=== PATIENT | female | born 1990 | race Caucasian/White ===

== ENCOUNTER → 2020-06-21 10:20 | Outpatient (CLI) | payer OTHER, SELFPAY ==
--- NOTE | ~2020-06-21 | XR_ITS ---
Corrected Report Changed to 3 view 06/22/2020 [facility] XR thoracic spine 3V DATE: 06/21/2020 10:52 INDICATION: Back pain TECHNIQUE: AP, lateral, swimmer views COMPARISON: None FINDINGS: Mild dextroscoliosis of the thoracic spine. No fracture or bone destruction. The thoracic pedicles are intact. No paraspinal soft tissue thickening. IMPRESSION: Mild dextroscoliosis Reviewed, dictated and finalized at location B. MTDD IMPRESSION: Mild dextroscoliosis
--- NOTE | ~2020-06-21 | XR_ITS ---
[id number] DATE: 06/21/2020 10:52 INDICATION: Left chest pain, abdominal pain TECHNIQUE: PA chest. 4 views of the left ribs. COMPARISON: None FINDINGS: Normal heart size. No hilar or mediastinal enlargement. The lungs appear mildly hyperinflat ed but are clear of infiltrate or consolidation. No pleural effusion or pulmonary vascular congestion or pneumothorax. No left rib fracture or bone destruction is detected. IMPRESSION: Negative Reviewed, dictated and finalized at Location A. Reviewed, dictated and finalized at location B. IMPRESSION: Negative
--- NOTE | ~2020-06-21 | XR_ITS ---
XR abdomen/kub 1V DATE: 06/21/2020 10:52 INDICATION: Abdominal pain, left flank pain. No known injury. TECHNIQUE: AP projection, 2 views COMPARISON: None FINDINGS: There are a couple of calcifications overlying the left renal silhouette, of uncertain sign ificance. Bilateral calcified pelvic phleboliths. The psoas shadows are intact. No visceromegaly is evident. There is no evidence of bowel obstruction. Included skeletal structures are unremarkable. The lung bases are clear. IMPRESSION: Nonspecific abdomen Reviewed, dictated and finalized at Location A. Reviewed, dictated and finalized at location B. IMPRESSION: Nonspecific abdomen
== END ==
PROVIDERS: PCP Physician Assistant; Visit Provider Physician Assistant
DX: R10.9 Unspecified abdominal pain (principal); M41.84 Other forms of scoliosis, thoracic region
CPT/HCPCS: 71101; 72072; 74018

== ENCOUNTER → 2020-06-29 08:53 | Outpatient (CLI) | payer OTHER, SELFPAY ==
--- NOTE | ~2020-06-29 | CT_ITS ---
EXAMINATION: CT abdomen pelvis wo con EXAM DATE: 06/29/2020 09:18 INDICATION: Appendectomy. Left flank pain. Frequent urination. TECHNIQUE: Spiral CT of the abdomen and pelvis was performed without contrast. Axial, coronal and sag ittal images were reviewed. The dose-length product (DLP) for this examination was 421.42 mGy-cm. T he exposure was tailored according to patient size (auto mA exposure control), and iterative reconstr uction (ASIR) was used as additional dose reduction technique. There is no prior study for compariso n. FINDINGS: Calcifications in the pelvis are believed to be phleboliths. There is no nephrolithiasis o r hydronephrosis. The uterus is retroverted and morphologically normal. The bladder is unremarkab le. The liver, spleen, adrenal glands and pancreas are unremarkable. Gallbladder is unremarkable. No biliary obstruction. There is no retroperitoneal or pelvic lymphadenopathy. Some suture material along the cecal base. The stomach and small bowel are unremarkable. There is e xpected amount of colonic stool. No free intraperitoneal gas. The heart is normal in size. There are no pericardial or pleural effusions. The lung bases are unremarkable. The bones are unremarkab le. IMPRESSION: Unremarkable CT abdomen pelvis exam. Reviewed, dictated and finalized at location A.
== END ==
PROVIDERS: PCP Physician Assistant; Visit Provider Physician Assistant
DX: R93.41 Abnormal radiologic findings on diagnostic imaging of renal pelvis, ureter, or bladder (principal)
CPT/HCPCS: 74176

== ENCOUNTER → 2020-08-28 15:23 | Outpatient (CLI) | payer OTHER, SELFPAY ==
--- NOTE | ~2020-08-28 | MR_ITS ---
EXAMINATION: MR brain/brain stem wo/w con EXAM DATE: 08/28/2020 16:18 INDICATION: Bilateral hand and feet paresthesia. TECHNIQUE: Magnetic resonance imaging (MRI) of the brain/brain stem obtained without contrast. Sagit opal T1, axial diffusion, gradient echo (T2*), T1, T2, FLAIR sequences obtained. Patient was then inj ected with 12 cc intravenous Multihance contrast. Axial and coronal postcontrast T1 weighted sequence s obtained. There is no prior study for comparison. FINDINGS: There are no areas of restricted diffusion to suggest acute infarction. There is no acute hemorrhage seen on the T2*, a hemosiderin sensitive sequence. No intraparenchymal brain mass. The ve ntricles are normal in size. There are no extra-axial collections. Flow voids are seen in the cereb ral arteries on the T2-weighted sequences consistent with their expected patency. The orbits are unr emarkable. Soft tissue is unremarkable. There are no areas of abnormal enhancement on the postcont rast images. IMPRESSION: 1. Normal brain MRI examination. Reviewed, dictated and finalized at location A.
[2020-08-28 16:05] LABS: Estimated Glomerular Filt Rate > 60
== END ==
PROVIDERS: PCP Physician Assistant; Visit Provider Physician Assistant
DX: R20.2 Paresthesia of skin (principal)
CPT/HCPCS: 70553; A9577

== ENCOUNTER → 2022-11-27 10:08 | Outpatient (CLI) | payer OTHER, SELFPAY ==
--- NOTE | ~2022-11-27 | XR_ITS ---
EXAMINATION: XR hand RT min 3V INDICATION: Right hand pain TECHNIQUE: Three views of the right hand are obtained. COMPARISON: None available FINDINGS: No fracture, dislocation, or subluxation. The bones, soft tissues, and joint spaces are nor mal. IMPRESSION: 1. No acute osseous abnormality. 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
--- NOTE | ~2022-11-27 | XR_ITS ---
EXAMINATION: XR hand LT min 3V INDICATION: Left hand pain TECHNIQUE: Three views of the left hand are obtained. COMPARISON: None available FINDINGS: No fracture, dislocation, or subluxation. The bones, soft tissues, and joint spaces are nor mal. IMPRESSION: 1. No acute osseous abnormality. Reviewed, dictated and finalized at location L. 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
== END ==
PROVIDERS: PCP Physician Assistant; Visit Provider Physician Assistant
DX: M79.641 Pain in right hand (principal); M79.642 Pain in left hand
CPT/HCPCS: 73130